=== PATIENT | male | born 1995 | race Native Hawaiian/Other Pacific Islander ===

== ENCOUNTER 2018-10-12 15:04 | Emergency (ER) | payer OTHER ==
[~2018-10-12] VITALS: Ht 172.7 cm; Wt 72.6 kg
[2018-10-12 16:37] VITALS: BP 107/64; TEMP 97.9
== END 2018-10-12 16:52 | disposition home or self-care (01) ==
LOC: ED 15:04
PROC: 0HQFXZZ Repair Right Hand Skin, External Approach (ICD-10-PCS; principal; 2018-10-12)
DX: S61.011A Laceration without foreign body of right thumb without damage to nail, initial encounter (principal); W26.0XXA Contact with knife, initial encounter; Y92.89 Other specified places as the place of occurrence of the external cause
CPT/HCPCS: 90471; 90715; 99283

== ENCOUNTER 2018-10-22 14:20 | Emergency (ER) | payer OTHER ==
[~2018-10-22] VITALS: Ht 172.7 cm; Wt 72.6 kg
[2018-10-22 14:25] VITALS: BP 135/75; TEMP 98.4
== END 2018-10-22 14:52 | disposition home or self-care (01) ==
LOC: ED 14:20
DX: Z48.02 Encounter for removal of sutures (principal)